=== PATIENT | male | born 1965 | race Caucasian/White ===

== ENCOUNTER 2018-10-16 08:26 | Emergency (ER) | payer OTHER ==
[~2018-10-16] VITALS: Ht 165.1 cm; Wt 71.0 kg
[2018-10-16 08:36] VITALS: Ht 165.1 cm; Wt 71.0 kg
[2018-10-16] MEDS ORDERED: SOD CHLORIDE 0.9% 1,000 ML IV STA (09:01)
[2018-10-16] MEDS ORDERED: GLIP5TAB13 PO (10:24)
[2018-10-16] MEDS ORDERED: IBUP-1542 PO (10:25)
[2018-10-16 11:41] VITALS: BP 159/78; PULSE 74; RESP 18
--- NOTE | 2018-10-16 13:51 | ERD ---
ER Documentation Chief Complaint Chief Complaint syncope not injury, dizziness HPI This is a 53-year-old male with a past medical history of [id number] diabetes mellitus. The patient indicates that today he awoke and felt slightly dizzy. He took his glipizide as he normally does but stated he forgot to eat. Afterwards he was walking to the bathroom when he felt a sudden onset of lightheaded and dizziness. The patient had a brief transient loss of consciousness with loss of postural tone and complete spontaneous recovery within 20 seconds. He stated he did fall to the floor and hit his head. He denies a headache. He was unable to check his sugar but stated he felt symptoms of hypoglycemia. He did eat something afterwards and he stated his symptoms had improved. He also indicates he has been undergoing a significant amount of stress as he lost 3 family members in the past month due to heart disease. He denies any chest pain. He has no shortness of breath at rest or exertion. He denies any polyuria or polydipsia. ROS All systems reviewed and are negative except as per history of present illness. Medications Home Meds Reported Medications Ibuprofen* (Ibuprofen*) 600 Mg Tablet, 600 MG PO Q6H, TAB 10/16/18 Glipizide* (Glipizide*) 5 Mg Tablet, 5 MG PO AC BREAKFAST, TAB 10/16/18 Allergies Allergies: Coded Allergies: No Known Allergy (Unverified , 10/16/18) PMhx/Soc History of Surgery: No Anesthesia Reaction: No Hx Neurological Disorder: No Hx Respiratory Disorders: No Hx Cardiac Disorders: No Hx Psychiatric Problems: No Hx Miscellaneous Medical Probl: Yes (ARTHRITIS) Hx Alcohol Use: No Hx Substance Use: No Hx Tobacco Use: No Smoking Status: Never smoker Physical Exam Vitals Vital Signs Date Temp Pulse Resp B/P (MAP) Pulse Ox O2 O2 Flow FiO2 Time Delivery Rate 10/16/18 98.0 74 18 159/78 99 Room Air 11:41 (105) 10/16/18 64 18 171/82 99 Room Air 10:21 (111) 10/16/18 154/89 10:00 (110) 146/97 (113) 160/95 (116) 10/16/18 97.9 58 18 160/90 98 08:36 (113) Physical Exam Constitutional:Well-developed. Well-nourished. HEENT:Normocephalic. No nasal septal hematoma. No hemotympanum..Pupils were equal round reactive to light. Dry mucous membranes.No tonsillar exudates. Neck: No nuchal rigidity. No lymphadenopathy. No posterior cervical spine tenderness or step-offs. Respiratory: Not using accessory muscles of respiration.Lungs were clear to auscultation bilaterally. No rhonchi. No rales. No wheezing. Cardiovascular: Regular rate regular rhythm.No murmurs. No rubs were appreciated.S1, S2 normal. Distal pulses are palpable 2+ bilaterally. GI: Abdomen was soft. Nontender. Non Distended. No pulsatile abdominal masses or bruits. No rebound. No guarding. Bowel sounds were present and normal. Muscle skeletal: Full range of motion of both the upper and lower extremities bilaterally.Normal muscle tone.No assymetrical calf tenderness or swelling. Skin: No petechia, no purpura. No lesions on the palms or the soles of the feet. No maculopapular rash. NEURO: Patient was alert, awake, orientated x3.No facial droop. Gait observed and normal with no ataxia.Speech had regular rate and rhythm. No focal neurological deficits. Result Diagram: 10/16/1891110/16/18911 Results 24 hrs Laboratory Tests Test 10/16/18 08:35 10/16/18 09:12 Bedside Glucose 167 mg/dL White Blood Count 12.7 10^3/ul Red Blood Count 5.39 10^6/ul Hemoglobin 15.9 g/dl Hematocrit 46.8 % Mean Corpuscular Volume 86.8 fl Mean Corpuscular Hemoglobin 29.5 pg Mean Corpuscular Hemoglobin Concent 34.0 g/dl Red Cell Distribution Width 13.6 % Platelet Count 227 10^3/UL Mean Platelet Volume 10.7 fl Immature Granulocytes % 0.400 % Neutrophils % 78.3 % Lymphocytes % 15.1 % Monocytes % 5.4 % Eosinophils % 0.6 % Basophils % 0.2 % Nucleated Red Blood Cells % 0.0 /100WBC Immature Granulocytes # 0.050 10^3/ul Neutrophils # 10.0 10^3/ul Lymphocytes # 1.9 10^3/ul Monocytes # 0.7 10^3/ul Eosinophils # 0.1 10^3/ul Basophils # 0.0 10^3/ul Nucleated Red Blood Cells # 0.0 10^3/ul Prothrombin Time 13.3 Sec Prothrombin Time Ratio 1.0 INR International Normalized Ratio 1.00 Activated Partial Thromboplast Time 29.4 Sec Sodium Level 144 mmol/L Potassium Level 4.7 mmol/L Chloride Level 104 mmol/L Carbon Dioxide Level 27 mmol/L Anion Gap 13 Blood Urea Nitrogen 12 mg/dl Creatinine 0.90 mg/dl Est Glomerular Filtrat Rate mL/min > 60 mL/min Glucose Level 198 mg/dl Calcium Level 9.8 mg/dl Total Bilirubin 1.0 mg/dl Direct Bilirubin 0.00 mg/dl Indirect Bilirubin 1.0 mg/dl Aspartate Amino Transf (AST/SGOT) 35 IU/L Alanine Aminotransferase (ALT/SGPT) 35 IU/L Alkaline Phosphatase 99 IU/L Troponin I < 0.012 ng/ml B-Type Natriuretic Peptide 61 PG/ML Total Protein 8.8 g/dl Albumin 4.6 g/dl Globulin 4.20 g/dl Albumin/Globulin Ratio 1.09 Current Medications Medications Dose Sig/James Start Time Status Last (Trade) Ordered Route PRN Stop Time Admin Dose Reason Admin Sodium 1,000 ml @ Q1H STAT 10/16/18 DC 10/16/18 Chloride 1,000 mls/hr IV 09:01 09:13 10/16/18 10:00 Procedures/MDM The patient presented to the emergency department with a transient loss of consciousness with loss of postural tone, suggestive of a syncope episode. The differential diagnosis of syncope is vast but my workup considered common benign disorders to life-threatening processes. Therefore my differential diagnosis included but was not limited to reflex-mediated syncope such as vasovagal or carotid sinus syncope from coughing, sneezing, micturition, or GI stimulation (eg, defecation). Other etiologies in my workup included orthostatic hypotension which could cause syncope from an abrupt drop in venous return to heart from volume depletion. An EKG and cardiac enzymes were obtained to rule out cardiac arrhythmias or ischemia. Cardiopulmonary disease such as valvular disease, hypertrophic cardiomyopathy, pericardial tamponade, or pulmonary embolism were considered as a factor causing the patients syncope episode. The patient had no difference in blood pressure in both arms that could suggest aortic dissection or subclavian steal syndrome. Rectal exam was negative for fecal occult blood that could suggest GI bleeding. Ancillary laboratory work was obtained to evaluate for metabolic or electrolyte abnormalities. The patient had no witne ssed brief tonic movements that could suggest postictal confusion. The patient was placed on a monitoring coordinator, continuous pulse oximetry and IV access established by nursing staff. The patient showed signs of clinical dehydration. He was given a liter bolus of normal saline. I did a CT scan the patient's head there is no intracerebral hemorrhage mass-effect or midline shift. 12 Lead EKG tracing ordered and reviewed by myself showed: Normal sinus rhythm of 66 bpm and no arrhythmia. NE interval normal. QRS duration normal. No ST segment elevation No ST segment depression. No changes consistent with acute ischemia. Observation Note: Time: 4 hours Family Hx: No Hypertension Evaluation: Multiple exams showed improving symptoms and no evidence of focal neurological deficits. I had a lengthy discussion with the patient indicated I felt this could be result of a vasovagal episode. Orthostatics were performed and the patient was not orthostatic however he stated he had something to eat and drink prior to coming to the hospital. The patient said he felt comfortable being discharged home. He will follow-up with his primary care physician. The patient was discharged home in fair condition. They were instructed to return to the emergency department at any time if there was any worsening of their condition. The patient stated they would follow up with their PCP in the next 24-48 hours to initiate a suitable medication regimen under the care of their PCP as well as to allow their PCP to monitor any drug reactions. The patient was discharged home with prescriptions after they gave informed consent to the new medication. They were also fully informed by myself on the adverse effects and adverse drug interactions in order to provide adequate safeguards to prevent possible adverse reactions to medications. Departure Diagnosis: Primary Impression: Vasovagal syncope Condition: Fair Patient Instructions: Syncope, Vasovagal MASON GARCÍA MD Oct 16, 2018 13:51
== END 2018-10-16 11:50 | disposition home or self-care (01) ==
LOC: E/R 08:26
DX: R55 Syncope and collapse (principal); E11.9 Type 2 diabetes mellitus without complications; Z79.84 Long term (current) use of oral hypoglycemic drugs
CPT/HCPCS: 70450; 71045; 80053; 82962; 83880; 84484; 85025; 85610; 85730; 93005; J7030